=== PATIENT | male | born 1950 | race Caucasian/White ===

== ENCOUNTER 2018-07-18 19:43 | Emergency (ER) | payer MEDICAID, MEDICARE ==
[~2018-07-18] VITALS: Ht 172.7 cm; Wt 79.5 kg
[2018-07-18 20:52] LABS: BASOPHILS # (AUTO) 0.05 x10^3/uL (0-0.1); BASOPHILS % (AUTO) 1 % (0-1); EOSINOPHILS # (AUTO) 0.12 x10^3/uL (0-0.4); EOSINOPHILS % (AUTO) 2 % (1-7); LYMPHOCYTES # (AUTO) 1.21 x10^3/uL (1-3.4); LYMPHOCYTES % (AUTO) 18 % (22-44); MD NO; MEAN PLATELET VOLUME 7.3 fL (7.4-10.4); MONOCYTES # (AUTO) 0.69 x10^3/uL (0.2-0.8); MONOCYTES % (AUTO) 10 % (2-9); NEUTROPHILS # (AUTO) 4.75 x10^3/uL (1.8-6.8); NEUTROPHILS % (AUTO) 70 % (42-75); PLATELET COUNT 305 x10^3/uL (130-400); RED BLOOD COUNT 4.51 x10^6/uL (4.38-5.82); RED CELL DISTRIBUTION WIDTH 12.6 % (9.4-14.8)
[2018-07-18 20:54] LABS: ALBUMIN 3.9 g/dL (3.4-5.0); ANION GAP 7 mmol/L (5-15); CALCIUM 9.1 mg/dL (8.5-10.1); CHLORIDE 105 mmol/L (98-107); CREATININE 1.07 mg/dL (0.7-1.3)
[2018-07-18 20:55] VITALS: BP 124/85
--- NOTE | 2018-07-18 21:01 | NUR ---
PT STATES HE'S FEELING BETTER NOW, NOT DIZZY. BP IMPROVED FROM TRIAGE. ERP WAS IN TO SEE PT.
--- NOTE | 2018-07-18 21:27 | NUR ---
PT WITH VSS, STATES HE FEELS FINE. D/C INSTRUCTIONS & F/U APPT RV'W WITH PT. INSTRUCTED PT TO RETURN FOR ANY WORSENING SYMPTOMS. AMBULATED OUT OF ED WITHOUT DIFFICULTY, TO PICK HIM UP.
== END 2018-07-18 21:29 | disposition home or self-care (01) ==
LOC: ED 21:20
DX: R42 Dizziness and giddiness (principal); M10.9 Gout, unspecified
CPT/HCPCS: 36415; 80048; 82040; 85025; 93005; 99284